=== PATIENT | female | born 1980 | race Caucasian/White ===

== ENCOUNTER 2018-10-28 09:43 | Emergency (ER) | payer BC, OTHER ==
[~2018-10-28] VITALS: Ht 170 cm; Wt 95.0 kg
[2018-10-28 09:45] VITALS: BP 110/66
[2018-10-28] MEDS ORDERED: NS IV 1000 ML 1,000 ML IV ONE (09:46)
[2018-10-28] MEDS ORDERED: EPINEPHrine 0.1 MG/ML 10 ML (HOSPIRA) SYR IJ ONE ×2 (09:46)
--- NOTE | 2018-10-28 10:00 | ED CPR ---
HPI-CPR General Chief Complaint: SOB in distress Stated Complaint: SOB Source of Information: EMS History of Present Illness Date Seen by Provider: Oct 28, 2018 Time Seen by Provider: 10:02 Initial Comments 38 yo female obese recent knee surgery ?3d ago minimal information available reportedly had acute SOB this AM paramedics arrived to find pale, very weak, barely verbal arrives very pale eyes rolling back in head in extremis collapsed right after paramedics placed on gurney intubated immediately with 7.5 ET tube good bilat BS's no pulse, playground monitor show asystole CPR started IO access right shoulder with good return IV epi's 1mg given every 5 min did give 300 J shock in case of fine V fib cont asystole pt had absolutely no response to resuscitative efforts, good CPR, good ventilation IV epi's q 5min pupils became dilated and fixed efforts DC'd pt pronounced Allergies and Home Medications Patient Home Medication List Home Medication List Reviewed: Yes Review of Systems Review of Systems Constitutional: no symptoms reported Respiratory: Shortness of Air Cardiovascular: No Symptoms Reported Gastrointestinal: No Symptoms Reported Physical Exam Vital Signs Capillary Refill : Height, Weight, BMI Height: '" Weight: lbs. oz. kg; BMI Method: General Appearance: Severe Distress HEENT: PERRL/EOMI Respiratory: Lungs Clear Progress/Results/Core Measures Results/Orders Lab Results Laboratory Tests Test 10/28/18 09:54 Range/Units Glucometer 381 H 70-110 MG/DL Progress Progress Note : Progress Note will request superintendent maintenance airports involvement PE seems likely Critical Care Note Critical Care Start Time: 09:48 Stop Time: 10:03 Total Time (minutes) 15 Date of : Oct 28, 2018 Time of : 10:03 Progress see HPI pt went asystole immediately upon arrival care documented in HPI Departure Impression Primary Impression: Cardiopulmonary arrest Additional Impression: Pulmonary embolism Qualified Codes: I26.99 - Other pulmonary embolism without acute cor pulmonale Disposition: 20 Condition: CHARIS BOSS MD Oct 28, 2018 10:00
--- NOTE | 2018-10-28 10:03 | NUR ---
0945- Patient brought in by EMS for resp distress. Patient had knee surgery within the past week. Parents told EMS that she was fine yesterday, but woke up this morning and has had increasing shortness of breath. patient is diaphoretic and pale, unable to obtain O2 saturation. EMS inserted 20g R AC and an IO in R suarez prior to arrival. Is on nonrebreather mask. Patient moved to ED cart and hooked up to monitor. Dr Merrill requesting RSI box and intubation supplies. Torri RN and Lydia RN present in room. 0950- Patients respirations ceased, asystole on monitor. CPR initiated. 0952- rhythm check. asystole on monitor. CPR resumed 0953- intubation with 7.5 ett, 24cm at the lip. verified with color changing CO2 and lung sounds auscultated by Dr Merrill. Tube secured by tube clark. 0953- 1mg epi given 0954-rhythm check. asystole on monitor. CPR resumed. 0955- IO inserted in R humerus by [employer] art librarian. 0956- shock administered at 200J- contiuous CPR resumed. 0957- 1mg epi given 0958- rhythm check. asystole on monitor. CPR resumed. 1000- acu check 381. asystole on monitor. cpr continued. 1001- 1 mg epi given 1003- asystole on monitor. TOD called by Dr Merrill.
--- NOTE | 2018-10-28 10:30 | NUR ---
Mother and father notified by Dr Merrill. Family are currently in patient room with Paul from [facility]. Requesting their logging specialist, Pablito Whiting, be called.
--- NOTE | 2018-10-28 11:09 | NUR ---
Called coroners office at [phone] and was instructed that since the was witnessed this is not a coroners case.
--- NOTE | 2018-10-28 11:58 | NUR ---
Officer Serenity from [facility] here to talk with family since is requesting a coroners case.
--- NOTE | 2018-10-28 13:08 | NUR ---
Patient in custody of Sgt Benton and [facility]. Left facility at this time.
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
== END 2018-10-28 10:03 | disposition expired ==
LOC: EDUNIT# 09:43 → ER FS 09:45
DX: I46.9 Cardiac arrest, cause unspecified (principal); I26.99 Other pulmonary embolism without acute cor pulmonale
CPT/HCPCS: 31500; 36680; 82962; 99291